=== PATIENT | female | born 1960 | race Caucasian/White ===

== ENCOUNTER 2019-06-12 21:48 | Emergency (ER) | payer OTHER, SELFPAY ==
--- OUTSIDE RECORDS SUMMARY | 2019-06-12 21:51 | XMS REPORT ---
:1960 [facility] Address [address] [place] [address] [place] [id number] Care Team Providers Name Role Phone YUAN RIVERA Unavailable Unavailable Problems This patient has no known problems. Allergies, Adverse Reactions, Alerts This patient has no known allergies or adverse reactions. Medications This patient has no known medications. Results Test Description Test Time Test Comments Text Results Atomic Results Result Comments MR, MRI BREAST, WITHOUT 2018-08-05 10:30:00 #[id number] - MR, MRI BREAST, WITHOUTBREAST MRI OF BOTH BREASTS : 08/04/2018 MRI images were obtained with a dedicated breast coil. Multiplanar and multisequence MR images of the breasts are obtained before and after intravenous 17cc Multihance. Post contrast dynamic images are acquired, with subtraction images obtained.The images were analyzed using Telematik software. There is mild to moderate background enhancement in both breasts. The breast fibroglandular tissues are heterogenously dense.Scattered benign cysts are seen in both breasts.There is no suspicious mass or suspicious contrast enhancement in either breast. IMPRESSION: BENIGN Benign breast MRI. Kyle Byrne M.D. pth/:08/05/2018 10:30:33 Normal Exam MRI BI-RADS: 2 Benign [id number] -CREATININE 2018-08-04 08:58:00 Test Item Value Reference Range Comments POC-CREATININE (BENELY) (test 1.0 mg/dL 0.6-1.3 TESTED AT [facility] 6720 [id number]) [facility] [address] POC-EGFR (BENELY) (test [id number]=[id number]) 57 mL/min/1.73M2 MM, U/S, BREAST, [id number] 15:30:00Diagnostic workup per radiologist?- >Yes Reason for Exam:->Z15.01, Z15.09, N64.59MRN#: [id number] - MM , U/S, BREAST, BILATERALULTRASOUND OF BOTH BREASTS: 07/27/2018Comparison is made to exams dated: 10/25/2012 ultrasound and 07/27/2018 mammogram - [facility]. Technique: Bilateral whole breast color flow and real-time ultrasound including evaluation of all four quadrants and the retroareolar regions of both breasts and bilateral axilla was performed. There is no suspicious cystic or solid sonographic finding. Scattered benign cysts are present bilaterally. IMPRESSION: BENIGN There is no sonographic evidence of malignancy. A 1 year screening mammogram is recommended. Moody Arenas M.D. mc/:07/27/2018 15:30:43 Normal Exam Ultrasound BI-RADS: 2 Benign [id number] MM, DIGITAL MAMMO, DIAGNOSTIC, WITH JOI, BILATERAL INCLUDING [id number] 15:29:00Diagnostic workup per radiologist?->Yes Reason for Exam:->N64.59, Z15.01, Z15.09MRN#: [id number]# [id number] - MM, DIGITAL MAMMO, DIAGNOSTIC, WITH JOI, BILATERAL INCLUDING CADBILATERALDIGITAL DIAGNOSTIC MAMMOGRAM 3D/2D WITH CAD: 07/27/2018Comparison is made to exams dated: 01/23/2017 mammogram, 01/20/2012 ultrasound, and 01/20/2012 mammogram - [facility]. The tissue of both breasts is heterogeneously dense. This may lower the sensitivity of mammography. Tomosynthesis 3D imaging of the breast was also performed. Current study was also evaluated with a Computer Aided Detection (CAD) system. No significant masses, calcifications, or other findings are seen in either breast. IMPRESSION: NEGATIVEThere is no abnormality seen in the left breast to correspond with the area of clinical concern, however, ultrasound is recommended. Ultrasoundevaluation was performed immediately after this mammogram, but is reported separately. Please see that report for further details. There is no mammographic evidence of malignancy. Moody Arenas M.D. mc/:07/27/2018 15:29:39 Ladies' Locker Room Attendant: Faiza BHARDWAJ(James)(Marvin), [facility] Mammogram BI-RADS: 1 Negative
--- NOTE | 2019-06-12 23:24 | ER ---
Nurse's Notes [facility] Name: Yane Sharpe Age: 59 yrs Sex: Female : 1960 Arrival Date: 06/12/2019 Time: 21:51 Bed 5 Private MD: Diagnosis: Asymptomatic Hypertension Presentation: 06/12 21:53 Presenting complaint: Patient states: YESTERDAY MY PRESSURE IS AT 190s (SYSTOLIC) AND I rv FEEL PRESSURE ON MY HEAD. I HAD AN EPISODE OF RIGHT LEG WEAKNESS AND I COULD NOT SAY THE WORDS. TODAY MY PRESSURE IS STILL HIGH. Transition of care: patient was not received from another setting of care. Onset of symptoms was June 11, 2019 at 15:00. Risk Assessment: Do you want to hurt yourself or someone else? Patient reports no desire to harm self or others. Initial Sepsis Screen: Does the patient meet any 2 criteria? No. Patient's initial sepsis screen is negative. Does the patient have a suspected source of infection? No. Patient's initial sepsis screen is negative. Care prior to arrival: None. 21:53 Method Of Arrival: Ambulatory 21:53 Acuity: DENIZ 3 rv Triage Assessment: 22:03 General: Appears in no apparent distress. comfortable, Behavior is calm, cooperative. rv Pain: Complains of pain in NECK. Neuro: Level of Consciousness is awake, alert, obeys commands, Oriented to person, place, time, situation. Respiratory: Airway is patent. Derm: Skin is intact. Historical: - Allergies: 22:02 Codeine; rv 22:02 Demerol; rv - PMHx: 22:02 Hypertension; High Cholesterol; rv - PSHx: 22:02 Hysterectomy; KIDNEY SX; CYSTOSCOPY; COLONOSCOPY; rv - Immunization history:: Adult Immunizations. - Social history:: Smoking status: Patient/guardian denies using tobacco. - Ebola Screening: : No symptoms or risks identified at this time. Screenin:25 Abuse screen: Denies threats or abuse. Denies injuries from another. Nutritional ao screening: No deficits noted. Tuberculosis screening: No symptoms or risk factors identified. Fall Risk None identified. Assessment: 22:30 General: Appears in no apparent distress. comfortable, Behavior is calm, cooperative, rv appropriate for age. Pain: Denies pain. Neuro: Level of Consciousness is awake, alert, obeys commands, Oriented to person, place, time, situation, Appropriate for age Moves all extremities. Full function Facial symmetry appears normal. Cardiovascular: Reports None. Respiratory: Airway is patent Respiratory effort is even, unlabored, Respiratory pattern is regular, symmetrical. GI: Abdomen is non-distended. : No signs and/or symptoms were reported regarding the genitourinary system. EENT: No signs and/or symptoms were reported regarding the EENT system. Derm: No signs and/or symptoms reported regarding the dermatologic system. Musculoskeletal: No signs and/or symptoms reported regarding the musculoskeletal system. 22:55 Reassessment: Pt was medical screening by Dr Otto. rv 23:01 Reassessment: Patient and/or family updated on plan of care and expected duration. Pain ea level reassessed. Patient is alert, oriented x 3, equal unlabored respirations, skin warm/dry/pink. Pt medically screened. Pt left ED ambulatory tolerating well. Vital Signs: 22:00 BP 189 / 102; Pulse 79; Resp 18; Pulse Ox 98% ; Weight 80.74 kg (R); Height 5 ft. 6 in. rv (167.64 cm); 22:02 Temp 98.1(O); rv 22:09 BP 173 / 85; Pulse 74; Resp 16; Pulse Ox 99% on R/A; mt 23:03 BP 149 / 82; Pulse 74; Resp 16; Pulse Ox 99% on R/A; rv 22:00 Body Mass Index 28.73 (80.74 kg, 167.64 cm) rv ED Course: 21:51 Patient arrived in ED. ag3 21:54 Kevan Otto MD is Attending Physician. ps1 21:57 Ramiro Chinchilla, JAY JAY is Primary Nurse. ao 22:00 Triage completed. rv 22:03 Arm band placed on Patient placed in the treatment room, on a stretcher, on pulse rv oximetry, Patient notified of wait time. 22:25 Patient has correct armband on for positive identification. Pulse ox on. NIBP on. ao 23:02 No provider procedures requiring assistance completed. Patient did not have IV access rv during this emergency room visit. Administered Medications: No medications were administered Outcome: 23:02 Medical screen evaluation completed per provider. rv 23:02 Condition: stable 23:02 Discharge instructions given to door closer mechanic, Instructed on discharge instructions. 23:23 Discharge ordered by . ps1 23:28 Patient left the ED. ao Signatures: Ramiro Chinchilla, RN RN Jovana Villalobos mt, Elena RN RN Kevan Tomlinson MD MD ps1 Glenn Mena RN RN Roxanne Lawrence3 Corrections: (The following items were deleted from the chart) 23:02 23:01 Reassessment: Patient and/or family updated on plan of care and expected ea duration. Pain level reassessed. Patient is alert, oriented x 3, equal unlabored respirations, skin warm/dry/pink. Pt medically screened ea
--- NOTE | 2019-06-12 23:24 | EDPHYS ---
Physician Documentation [facility] Name: Yane Sharpe Age: 59 yrs Sex: Female : 1960 Arrival Date: 06/12/2019 Time: 21:51 Bed 5 Private MD: ED Physician Kevan Otto HPI: 06/12 22:51 This 59 yrs old Female presents to ER via Ambulatory with complaints of High ps1 Blood Pressure. 22:51 Patient presented with known history of HTN. On Losartan 20mg bid. States that her BP ps1 has been elevated for last couple of days. No symptoms on presentation. Pt of Dr. Saleh and Chris. Chris eval no cardiac history. Delfino managing HTN medications. . Historical: - Allergies: 22:02 Codeine; rv 22:02 Demerol; rv - PMHx: 22:02 Hypertension; High Cholesterol; rv - PSHx: 22:02 Hysterectomy; KIDNEY SX; CYSTOSCOPY; COLONOSCOPY; rv - Immunization history:: Adult Immunizations. - Social history:: Smoking status: Patient/guardian denies using tobacco. - Ebola Screening: : No symptoms or risks identified at this time. ROS: 22:51 Constitutional: Negative for fever, chills, and weight loss, Cardiovascular: Negative ps1 for chest pain, palpitations, and edema, Respiratory: Negative for shortness of breath, cough, wheezing, and pleuritic chest pain, Abdomen/GI: Negative for abdominal pain, nausea, vomiting, diarrhea, and constipation, Neuro: Negative for headache, weakness, numbness, tingling, and seizure. Exam: 22:51 Constitutional: This is a well developed, well nourished patient who is awake, alert, ps1 and in no acute distress. Head/Face: Normocephalic, atraumatic. Eyes: Pupils equal round and reactive to light, extra-ocular motions intact. Lids and lashes normal. Conjunctiva and sclera are non-icteric and not injected. Cardiovascular: Regular rate and rhythm. No gallops, murmurs, or rubs. Normal PMI, no JVD. No pulse deficits. Respiratory: Lungs have equal breath sounds bilaterally, clear to auscultation and percussion. No rales, rhonchi or wheezes noted. No increased work of breathing, no retractions or nasal flaring. Abdomen/GI: Soft, non-tender, with normal bowel sounds. No distension or tympany. No guarding or rebound. No evidence of tenderness throughout. Skin: Warm, dry with normal turgor. Normal color with no rashes, no lesions, and no evidence of cellulitis. Neuro: Awake and alert, GCS 15, oriented to person, place, time, and situation. Cranial nerves II-XII grossly intact. Sensory grossly intact. Vital Signs: 22:00 BP 189 / 102; Pulse 79; Resp 18; Pulse Ox 98% ; Weight 80.74 kg (R); Height 5 ft. 6 in. rv (167.64 cm); 22:02 Temp 98.1(O); rv 22:09 BP 173 / 85; Pulse 74; Resp 16; Pulse Ox 99% on R/A; mt 23:03 BP 149 / 82; Pulse 74; Resp 16; Pulse Ox 99% on R/A; rv 22:00 Body Mass Index 28.73 (80.74 kg, 167.64 cm) rv MDM: 22:50 Patient medically screened. ps1 22:51 Data reviewed: vital signs, nurses notes. ps1 Administered Medications: No medications were administered Disposition: 22:51 Asymptomatic hypertension. ps1 Disposition: 06/12/19 23:23 Discharged to Home. Impression: Asymptomatic Hypertension. - Condition is Stable. - Discharge Instructions: Hypertension. - Medication Reconciliation Form, Thank You Letter, Antibiotic Education, Prescription Opioid Use form. - Follow up: Private Physician; When: As needed; Reason: Recheck today's complaints, Continuance of care, Re-evaluation by your physician. Follow up: Emergency Department; When: As needed; Reason: Trouble breathing, Worsening of condition. - Problem is chronic. - Symptoms have improved. Signatures: Ramiro Chinchilla RN RN ao Kevan Otto MD MD ps1 Glenn Mena RN RN rv Corrections: (The following items were deleted from the chart) 23:28 23:23 06/12/2019 23:23 Discharged to Home. Impression: Asymptomatic Hypertension. ao Condition is Stable. Forms are Medication Reconciliation Form, Thank You Letter, Antibiotic Education, Prescription Opioid Use. Follow up: Private Physician; When: As needed; Reason: Recheck today's complaints, Continuance of care, Re-evaluation by your physician. Follow up: Emergency Department; When: As needed; Reason: Trouble breathing, Worsening of condition. Problem is chronic. Symptoms have improved. ps1
[2019-06-12 23:44] VITALS: TEMP 98.1
[2019-06-12 23:45] VITALS: O2SAT 99
[2019-06-12 23:46] VITALS: BP 149/82
== END 2019-06-12 23:28 | disposition home or self-care (01) ==
LOC: ER 21:48
DX: I10 Essential (primary) hypertension (principal); Z88.5 Allergy status to narcotic agent
CPT/HCPCS: 99283

== ENCOUNTER 2023-04-28 12:14 | Emergency (ER) | payer SELFPAY ==
--- OUTSIDE RECORDS SUMMARY | 2023-04-28 12:17 | XMS REPORT | Continuity of Care Document ---
:1960 Author Organization [facility] t Address [address] [place] [address] [address] [place] [address] Care Team Providers Name Role Phone Huang Saleh Primary Care Physician Unavailable Ricki Allen MD Attending Clinician [phone] Therapy, Clc Covid Infusion Attending Clinician Unavailable Neno Anne MD Attending Clinician NENO ANNE Attending Clinician Unavailable Doctor Unassigned, [place] Attending Clinician Unavailable Vero Caba RN Attending Clinician Unavailable YUAN RIVERA Attending Clinician Unavailable Stephanie Sharpe Attending Clinician Payers Payer Name Policy Type Policy Number Effective Date Expiration Date S ource Problems Condition Condition Condition Status Onset Resolution Last Treating Co mments Source Name Details Category Date Date Treatment Clinician Date BRCA2 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 -18 st positive positive 00:00: Hospit a 00 l LYMPEDEMA LYMPEDEMA Diagnosis Active 2017-01-09 Memoria Active 12-18 09:00:00 l 12/18/2016 00:00: Sukhjinder SMYTH [address] No known No known Disease Unive rs active active ity of problems problems [facility] Allergies, Adverse Reactions, Alerts Allergy Allergy Status Severity Reaction(s) Onset Inactive Treating Comm ents Source Name Type Date Date Clinician Emre Posada Active [address] [facility] 2[facility] adverse [facility]: tions Medical reaction 00 Center s Meperidi Propensi Active Other (See [address] [facility] ty to Comments) 2-13 [facility] adverse 00:00: Medical reaction 00 Center s Codeine Propensi Active Methodi ty to 1-28 st adverse 00:00: Hospita reaction 00 l s to drug Codeine Propensi Active Extra Univers ty to pyramidal 2-24 ity of adverse effects 00:00: [place] reaction 00 Medical s Branch Meperidi Propensi Active Extra 0 Univer s ne Hcl ty to pyramidal 2-24 ity of adverse effects 00:00: [place] reaction 00 Medical s Branch CODEINE DRUG Active EP Effects 0 Unive rs INGREDI 2-24 ity of 00:00: [place] 00 Medical Branch MEPERIDI DRUG Active EP Effects Univ ers NE HCL INGREDI 2-24 ity of 00:00: [place] 00 Medical Branch Codeine Drug Active Unknown - 2010-06 Hallucina Uni vers Allergy See comments 0-25 tionsSeve ity of 00:00: re [place] 00 senecaicina Medical tions Branch Meperidi Drug Active Hallucinatio 2010-06 hallucina Univers ne Allergy ns 0-25 tionshall ity of 00:00: icination [place] 00 s Medical Branch CODEINE DRUG Active High EP Effects 2010-06 Unive rs INGREDI 0-25 ity of 00:00: [place] 00 Medical Branch MEPERIDI DRUG Active High Unknown-Cmnt 2010-06 Un nedra NE INGREDI 0-25 ity of 00:00: [place] 00 Medical Branch Family History Family Member Diagnosis Comments Start Date Stop Date Source Natural brother Leukemia [facility] Natural father Bladder Cancer [facility] Natural mother Colon cancer [facility] Natural sister BRCA 1/[address] [facility] Social History Social Habit Start Date Stop Date Quantity Comments Source Sexual orientation Method ist [facility] History of Social 2022-09-14 2022-09-[address] function 00:00:00 00:00:00 Hospital Alcohol intake 2018-10-16 2018-10-16 Current University of 00:00:00 00:00:00 non-drinker of [facility] alcohol Branch (finding) Tobacco use and 2018-07-19 2018-07-19 Smokeless [facility] exposure 00:00:00 00:00:00 tobacco non-user Hospital Sex Assigned At [birth year] ROGER Alvarado 00:00:00 00:00:00 [facility] Center Smoking Status Start Date Stop Date Source Never smoked tobacco [facility] Medications Ordered Filled Start Stop Current Ordering Indication Dosage Frequency Signature Comments Components Source Medication Medication Date Date Medication? Clinician (SIG) Name Name losartan 2022- No losartan Meth burak (COZAAR) 25 3-29 03-[address] MG tablet 00:27: 00:00 tablet Hospi ta 36 :00 l dorzolamide Yes INSTILL 1 M ethodi (TRUSOPT) 2 3-[address] % 00:00: EACH EYE Hospita ophthalmic 00 TWICE l solution DAILY DIRECTED amLODIPine Yes 2.5mg QD Take 1 Meth burak (NORVASC) 2-[address] 2.5 mg 00:00: (2.5 mg Hospita tablet 00 total) by l mouth daily. olmesartan Yes 40mg QD Take 1 Metho di (BENICAR) 1-19 tablet (40 st 40 MG 00:00: mg total) Hospita tablet 00 by mouth l daily. casirivimab 2020- No [id number] 1200mg 1,200 mg, [facility] -imdevimab 02-26 IV ity of 1200 mg in 19:15: 18:00 Infusion, [place] 60 mL NS 00 :00 ONCE, Medical MINI-BAG Administer Branc h over 20 Minutes, Tu02/26/21 at 1415, For 1 dose
Ad beaver trapper as an IV infusion via pump or gravity through an intravenou s line containing a sterile, in-line or add-on 0.2-micron polyethers ulfone (PES) filter. Stable 36 hours refrigerat ed; 4 hours at room temperatur e.
losartan Yes losartan Metho di (COZAAR) 25 7-[address] MG tablet 13:25: tablet Hospit a 46 l LOSARTAN-HY Yes Take by Uni vers DROCHLOROTH 4-27 mouth. ity of IAZIDE ORAL 22:38: [address] losartan 25 Yes losartan Un nedra mg tablet 4-27 25 mg ity of 22:38: tablet [address] LOSARTAN-HY Yes Take by Uni vers DROCHLOROTH 4-27 mouth. ity of IAZIDE ORAL 22:38: [address] losartan 25 Yes losartan Un nedra mg tablet 4-27 25 mg ity of 22:38: tablet [address] LOSARTAN-HY Yes Take by Uni vers DROCHLOROTH 4-27 mouth. ity of IAZIDE ORAL 22:38: [address] losartan 25 Yes losartan Un nedra mg tablet 4-27 25 mg ity of 22:38: tablet [address] LOSARTAN-HY Yes Take by Uni vers DROCHLOROTH 4-27 mouth. ity of IAZIDE ORAL 22:38: [address] losartan 25 Yes losartan Un nedra mg tablet 4-27 25 mg ity of 22:38: tablet [address] LOSARTAN-HY Yes Take by Uni vers DROCHLOROTH 4-27 mouth. ity of IAZIDE ORAL 17:38: [address] losartan 25 Yes losartan Un nedra mg tablet 4-27 25 mg ity of 17:38: tablet [address] LOSARTAN-HY Yes Take by Uni vers DROCHLOROTH 4-27 mouth. ity of IAZIDE ORAL 17:38: [address] losartan 25 Yes losartan Un nedra mg tablet 4-27 25 mg ity of 17:38: tablet [address] azithromyci Yes [id number] 250mg Take 1 Univers n 250 mg 2-25 tablet by ity of tablet 00:00: mouth SEE-INSTRU Medical CTIONS. Branch Take 500 mg day 1, then 250 mg days 2 to 5. benzonatate Yes [id number] 100mg Take 1 Univers 100 mg 2-25 capsule by ity of capsule 00:00: mouth 3 [place] (three) Medical times Branch daily as needed for Cough. azithromyci Yes [id number] 250mg Take 1 Univers n 250 mg 2-25 tablet by ity of tablet 00:00: mouth [facility] CTIONS. Branch Take 500 mg day 1, then 250 mg days 2 to 5. benzonatate 2019-0 Yes [id number] 100mg Take 1 Univers 100 mg 2-25 capsule by ity of capsule 00:00: mouth (three) Medical times [place] daily as needed for Cough. azithromyci 2019-0 Yes [id number] 250mg Take 1 Univers n 250 mg 2-25 tablet by ity of tablet 00:00: mouth [facility] CTIONS. Branch Take 500 mg day 1, then 250 mg days 2 to 5. benzonatate 2019-0 Yes [id number] 100mg Take 1 Univers 100 mg 2-25 capsule by ity of capsule 00:00: mouth ([facility]) Medical times [place] daily as needed for Cough. azithromyci 2019-0 Yes [id number] 250mg Take 1 Univers n 250 mg 2-25 tablet by ity of tablet 00:00: mouth [facility] CTIONS. Branch Take 500 mg day 1, then 250 mg days 2 to 5. benzonatate 2019-0 Yes [id number] 100mg Take 1 Univers 100 mg 2-25 capsule by ity of capsule 00:00: mouth ([facility]) Medical times [place] daily as needed for Cough. azithromyci 2019-0 Yes [id number] 250mg Take 1 Univers n 250 mg 2-25 tablet by ity of tablet 00:00: mouth [facility] CTIONS. Branch Take 500 mg day 1, then 250 mg days 2 to 5. benzonatate 2019-0 Yes [id number] 100mg Take 1 Univers 100 mg 2-25 capsule by ity of capsule 00:00: mouth (three) Medical times [place] daily as needed for Cough. azithromyci 2019-0 Yes [id number] 250mg Take 1 Univers n 250 mg 2-25 tablet by ity of tablet 00:00: mouth [facility] CTIONS. Branch Take 500 mg day 1, then 250 mg days 2 to 5. benzonatate 2019-0 Yes [id number] 100mg Take 1 Univers 100 mg 2-25 capsule by ity of capsule 00:00: mouth (three) Medical times Branch daily as needed for Cough. hydroCHLORO Yes Univer s thiazide 2-20 ity of 12.5 mg 00:00: [place] capsule 00 Medical Branch hydroCHLORO 0 Yes Univer s thiazide 2-20 ity of 12.5 mg 00:00: [place] capsule Medical Branch hydroCHLORO 0 Yes Univer s thiazide 2-20 ity of 12.5 mg 00:00: [place] capsule Medical Branch hydroCHLORO 2018-0 Yes Univer s thiazide 2-20 ity of 12.5 mg 00:00: [place] capsule Medical Branch hydroCHLORO Yes Univer s thiazide 2-20 ity of 12.5 mg 00:00: [place] capsule Medical Branch hydroCHLORO Yes Univer s thiazide 2-20 ity of 12.5 mg 00:00: [place] capsule Medical Branch Vital Signs Vital Name Observation Time Observation Value Comments Source Systolic blood 2021-02-26 18:59:00 135 mm[Hg] Univer sity of pressure [facility] Diastolic blood 2021-02-26 18:59:00 86 mm[Hg] Unive rsity of [facility] Heart rate 2021-02-26 18:59:00 82 /min [facility] Body temperature 2021-02-26 18:59:00 37.39 [facility] Res[facility] rate 2021-02-26 18:59:00 16 /min [facility] Oxygen saturation in 2021-02-26 18:59:00 96 /min [facility] Arterial blood by [facility] Pulse oximetry [place] Body height 2021-02-26 17:27:00 167.6 cm [facility] Body weight 2021-02-26 17:27:00 79.379 kg [facility] BMI 2021-02-26 17:27:00 28.25 kg/m2 [facility] Procedures Procedure Date / Time Performed Performing Clinician Sourc e AUTOMATED VISUAL 2022-09-15 13:53:[address] [facility] FIELD, EXTENDED - OU Srinath - BOTH EYES OCT, OPTIC NERVE - OU 2022-09-15 13:43:24 Ricki Allen [facility] - BOTH EYES [facility] CONSENT/REFUSAL FOR 2021-02-26 05:01:00 Doctor [facility]igned, [facility] AND Name Medical Branch TREATMENT Plan of Care Planned Activity Planned Date Details Comments Source Future Scheduled 2023-04-24 [facility] Test 21:54:43 malignant neoplasm of colon (procedure) [code = 301379337] Future Scheduled 2023-04-24 [facility] Test 21:54:43 malignant neoplasm of colon (procedure) [code = 393887603] Future Scheduled 2023-04-24 COVID-19 VACCINE (#1) [facility] Test 21:54:43 [code = COVID-19 VACCINE (#1)] Future Scheduled 2023-04-24 Hepatitis C screening [facility] Test 21:54:43 (procedure) [code = 800847684] Future Scheduled 2023-04-24 [facility] Test 21:54:43 malignant neoplasm of cervix (procedure) [code = 278465633] Future Scheduled 2023-04-24 [facility] Test 21:54:43 malignant neoplasm of colon (procedure) [code = 195342893] Future Scheduled 2023-04-24 SHINGLES VACCINES (1 [facility] Test 21:54:43 of 2) [code = SHINGLES VACCINES (1 of 2)] Future Scheduled 2023-04-[address] [facility] Test 21:54:43 SCREENING [code = BREAST CANCER SCREENING] Future Scheduled 2023-04-[address] [facility] Test 21:54:43 malignant neoplasm of colon (procedure) [code = 036489203] Future Scheduled 2023-04-[address] [facility] Test 21:54:43 malignant neoplasm of colon (procedure) [code = 602626857] Future Scheduled 2023-04-24 INFLUENZA VACCINE Method t Hospital Test 21:54:43 (#1) [code = INFLUENZA VACCINE (#1)] Future Scheduled 2021-05-01 COVID-19 VACCINE (1) [facility] Test 15:04:38 [code = COVID-19 VACCINE (1)] Future Scheduled 2021-05-01 Hepatitis C screening [facility] Test 15:04:38 (procedure) [code = 015950883] Future Scheduled 2021-05-01 [facility] Test 15:04:38 malignant neoplasm of cervix (procedure) [code = 256792591] Future Scheduled 2021-05-01 COLONOSCOPY SCREENING [facility] Test 15:04:38 [code = COLONOSCOPY SCREENING] Future Scheduled 2021-05-01 SHINGLES VACCINES Method [facility] Hospital Test 15:04:38 (#1) [code = SHINGLES VACCINES (#1)] Future Scheduled 2021-05-01 BREAST CANCER [facility] Test 15:04:38 SCREENING [code = BREAST CANCER SCREENING] Future Scheduled 2021-05-01 INFLUENZA VACCINE Method [facility] Hospital Test 15:04:38 [code = INFLUENZA VACCINE] Future Scheduled 2021-02-[address] [facility] Test 00:00:00 (#1) [code = Medical Center INFLUENZA VACCINE (#1)] Future Scheduled 2020-06-[address] [facility] Test 00:00:00 (12+) [code = Medical Center DEPRESSION SCREENING (12+)] Future Scheduled 2019-07-[address] [facility] 00:00:00 [facility] breast (procedure) [code = 108843065] Future Scheduled 2009 SHINGLES VACCINES ([address] [facility] Test 00:00:00 of 2) [code = Medical Center SHINGLES VACCINES (1 of 2)] Future Scheduled 2004-01-[address] [facility] Test 00:00:00 (procedure) [code = Medical Center 22866177] Future Scheduled 1980-01-[address] [facility] Test 00:00:00 [facility] cervix (procedure) [code = 826509845] Future Scheduled 1978 DTAP/TDAP/TD VACCINES [facility] Test 00:00:00 (1 - Tdap) [code = Medical C enter DTAP/TDAP/TD VACCINES (1 - Tdap)] Future Scheduled 1977 HEPATITIS C SCREENING [facility] Test 00:00:00 [code = HEPATITIS C Medical Center SCREENING] Future Scheduled 1971 COVID-19 VACCINE (1) [facility] Test 00:00:00 [code = COVID-[address] VACCINE (1)] Future Scheduled [address] [facility] Test 00:00:00 malignant neoplasm of Medica l Center colon (procedure) [code = 792154780] Encounters Start End Encounter Admission Attending Care Care Encounter Source Date/Time Date/Time Type Type Clinicians Facility Department ID 2023-04-01 2023-04-01 Telephone Lisa, 1.2.840.1 [id number] Methodi 00:00:00 00:00:[address] Srinath 3.430.2.7 Hospit a .3.179866 l .8 2022-11-21 2022-11-21 Telephone Lisa, 1.2.840.1 [id number] Methodi 00:00:00 00:00:[address] Srinath 3.430.2.7 Hospit a .3.343621 l .8 2022-09-29 2022-09-29 Travel 1.2.840.1 1.2.905.888 [id number] Methodi 00:00:00 00:00:[address] 3.430.2.7 0.2.7.3.698 Ho spita .3.352033 084.8 l .8 2022-09-25 2022-09-25 Travel 1.2.840.1 1.2.111.269 [id number] Methodi 00:00:00 00:00:[address] 3.430.2.7 0.2.7.3.698 Ho spita .3.093230 084.8 l .8 2022-09-22 2022-09-22 Telephone Lisa, 1.2.840.1 [id number] Methodi 00:00:00 00:00:[address] Srinath 3.430.2.7 Hospit a .3.740245 l .8 2022-09-15 2022-09-15 Office Lisa, 1.2.840.1 [id number] Methodi 08:00:00 09:47:51 Visit Peter 40961.1.[address] Srinath 3.430.2.7 Hospit a .3.156352 l .8 2022-09-15 2022-09-15 Travel 1.2.840.1 1.2.820.085 [id number] Methodi 00:00:00 00:00:[address] 3.430.2.7 0.2.7.3.698 Ho spita .3.436384 084.8 l .8 2022-09-15 2022-09-15 Outpatient LISA, [facility] [id number] [place] 00:00:00 00:00:00 [address] [facility] i st 2021-02-26 2021-02-26 Nurse Therapy, Clc Covid Infusion [facility] 1.2.840.114 [id number] Univers 11:58:30 12:58:30 Visit Neno Anne [facility] 350.1.13.10 ity [facility] 4.2.7.2.686 [facility] [phone] [place] [id number] Branch Office Building 2021-02-26 2021-02-26 Outpatient James [facility] [id number] Univers 12:30:00 12:30:00 NENO casanova [facility] [place] 2021-02-26 2021-02-26 Orders Doctor MCNAMARA 1.2.840.114 [id number] Univers 00:00:00 00:00:00 Only Unassigned, CAMILO 350.1.13.[address] [place] [facility] 4.2.7.2.686 Eduardo as [phone] [facility] 009 Branch 2021-02-25 2021-02-25 Outpatient James ANNE [facility] [id number] Univers 10:30:00 10:30:00 NENO casanova [facility] [place] 2021-02-25 2021-02-25 Nurse Vero Caba 1.2.840.114 [id number] Univers 00:00:00 00:00:00 Triage CAMILO 350.1.13.10 it y of HOSPITAL 4.2.7.2.686 Eduardo as [id number] [facility] 019 Branch 2017-01-09 2017-02-08 Wound Care [facility] [id number] Memoria 13:50:00 04:59:00 r Herrera 00 l [facility] 2017-01-09 2017-02-08 Wound Care [facility] [id number] Memoria 13:50:00 04:59:00 r Herrera 00 l [facility] 2017-01-09 2017-02-07 Outpatient Dell [facility] [id number] 08:50:00 23:59:00 Stephanie Jones 00 Results Test Description Test Time Test Comments [facility], MRI BREAST, 2018-08-05 MRN#: WITHOUT 10:30:00 [id number] - MR, MRI BREAST, WITHOUTBREAST MRI OF BOTH BREASTS : 08/04/2018 MRI images were obtained with a dedicated breast coil. Multiplanar and multisequence MR images of the breasts are obtained before and after intravenous 17cc Multihance. Post contrast dynamic images are acquired, with subtraction images obtained.The images were analyzed using Jukedeck software. There is mild to moderate background enhancement in both breasts. The breast fibroglandular tissues are heterogenously dense.Scattered benign cysts are seen in both breasts.There is no suspicious mass or suspicious contrast enhancement in either breast. IMPRESSION: BENIGN Benign breast MRI. Kyle Ace M.D. pth/:08/05/2018 10:30:33 Normal Exam MRI BI-RADS: 2 Benign C8909 -CREATININE 2018-08-04 08:58:00 Test Item Value Reference Range Interpretation Comme [facility] POC-CREATININE (BEAKER) (test 1.0 mg/dL 0.6-1.[address] [facility] 6720 code = 1859) [facility] [address] POC-EGFR (BEAKER) (test code = 57 mL/min/1.73M2 1860) MM, U/S, BREAST, [id number] 15:30:00Diagnostic workup per radiologist?- >Yes Reason for Exam:->Z15.01, Z15.09, N64.59MRN#: [id number] - MM, U/S, BREAST, BILATERALULTRASOUND OF BOTH BREASTS: 07/27/2018Comparison is made to exams dated: 10/25/2012 ultrasound and 07/27/2018 mammogram - [facility]. Technique: Bilateral whole breast color flow and real-time ultrasound including evaluation of all four quadrants and the retroareolar regions of both breasts and bilateral axilla was performed. There is no suspicious cystic or solid sonographic finding. Scattered benign cysts are present bilaterally. IMPRESSION: BENIGN There is no sonographic evidence of malignancy. A 1 year screening mammogram is recommended. Moody Arenas M.D., mc/:07/27/2018 15:30:43 Normal Exam Ultrasound BI-RADS: 2 Benign 57605 MM, DIGITAL MAMMO, DIAGNOSTIC, WITH JOI, BILATERAL INCLUDING [id number] 15:29:00 Diagnostic workup per radiologist?->Yes Reason for Exam:->N64.59, Z15.01, Z15.09MRN#: [id number] - MM, DIGITAL MAMMO, DIAGNOSTIC, WITH JOI, BILATERAL INCLUDING CADBILATERALDIGITAL DIAGNOSTIC MAMMOGRAM 3D/2D WITH CAD: 07/27/2018Comparison is made to exams dated: 01/23/2017 mammogram, 01/20/2012 ultrasound, and [facility] The tissue of both breasts is heterogeneously dense. This may lower the sensitivity of mammography. Tomosynthesis 3D imaging of the breast was also performed. Current study was also evaluatedwith a Computer Aided Detection (CAD) system. No significant masses, calcifications, or other findings are seen in either breast. IMPRESSION: NEGATIVEThere is no abnormality seen in the left breast to correspond with the area of clinical concern, however, ultrasound is recommended. Ultrasound evaluation was performed immediately after this mammogram, but is reported separately. Please see that reportfor further details. There is no mammographic evidence of malignancy. Moody Arenas M.D. mc/:07/27/2018 15:29:39 Juice Tester: Faiza PELAYO)(Marvin), [facility] Mammogram BI-RADS: 1 Negative
[2023-04-28 12:38] LABS: Absolute Lymphocytes (CBC) 1.6 K/uL (0.7-4.9); Hematocrit 39.5 % (36.0-45.0); Lymphocytes % 31.2 % (15.3-44.8); MCV 87.3 fL (80-100); MPV 8.1 fL (7.6-11.3); Platelets 174 thou/uL (152-406); RBC Red Blood Cell Count 4.52 M/uL (3.86-4.86)
--- NOTE | 2023-04-28 12:41 | RAD REPORT ---
EXAM DESCRIPTION: CT - Ct Stroke Brain Wo Cont - 04/28/2023 12:30 pm CLINICAL HISTORY: STROKE ALERT Headache, drowsiness, CVA symptomology COMPARISON: No comparisons TECHNIQUE: All CT scans are performed using dose optimization technique as appropriate and may inclu de automated exposure control or mA/KV adjustment according to patient size. FINDINGS: No intracranial hemorrhage, hydrocephalus or extra-axial fluid collection.No areas of brai n edema or evidence of midline shift. The paranasal sinuses and mastoids are clear. The calvarium is intact. IMPRESSION: No acute intracranial abnormality. The findings were discussed with Dr. Luciano in the ER On 04/28/2023 at 12:36 p.m. by telephone.
[2023-04-28 12:44] LABS: Protime INR 0.96
--- NOTE | 2023-04-28 12:50 | RAD REPORT ---
EXAM DESCRIPTION: CT - Head angio - 04/28/2023 12:34 pm CLINICAL HISTORY: STROKE ALERT Headache, drowsiness, CVA COMPARISON: Ct Stroke Brain Wo Cont dated 04/28/2023 TECHNIQUE: CT angiography of the head was performed with MIPs. All CT scans are performed using dose optimization technique as appropriate and may include automated exposure control or mA/KV adjustment according to patient size. FINDINGS: No evidence of large vessel occlusion. Mild atheromatous narrowing seen bilateral M1 segme nts. No evidence of aneurysm is detected. No flow-limiting stenosis or vascular malformation identifi ed. Antegrade flow is seen in the vertebral arteries. Mild left-sided dominant vertebral artery. The visualized dural venous sinuses are patent. IMPRESSION: No significant flow abnormality is detected.
--- NOTE | 2023-04-28 12:55 | RAD REPORT ---
EXAM DESCRIPTION: CT - Neck Angio - 04/28/2023 12:34 pm CLINICAL HISTORY: NUMBNESS Headache, drowsiness, CVA symptomology COMPARISON: No comparisons TECHNIQUE: CT angiography of the neck vessels was performed with MIPs. All CT scans are performed using dose optimization technique as appropriate and may include automated exposure control or mA/KV adjustment according to patient size. FINDINGS: A left aortic arch is identified with normal three vessel configuration of the great vesse ls. No significant flow abnormality is seen of the common carotid bilaterally. Focal soft plaque is present left carotid bulb measuring approximately 5 mm in thickness. This result s in moderate stenosis estimated at 50-70% based on NASCET criteria. Mild hard plaque is present invo lving the proximal left internal carotid artery resulting in stenosis study is mild, left and 50% bas ed on NASCET criteria. Normal flow is seen within both vertebral arteries. IMPRESSION: Soft plaque is noted in the region of the left carotid bulb resulting in a moderate grad e stenosis based on NASCET criteria. NASCET criteria used. Mild 0-49% stenosis Moderate 50-69% stenosis Severe 70-99% stenosis
[2023-04-28 12:56] LABS: ALT/SGPT 33 U/L (13-56); AST/SGOT 25 U/L (15-37); Albumin 3.7 g/dL (3.4-5.0); Alkaline Phosphatase 119 U/L (45-117); BUN Blood Urea Nitrogen 18 mg/dL (7-18); Bicarbonate 27 mEq/L (21-32); Bilirubin Total 0.4 mg/dL (0.2-1.0); Glomerular Filtration Rate 89 ml/min (=/>90); Glucose Level 102 mg/dL (74-106); Magnesium 2.2 mg/dL (1.6-2.4); Protein, Total 7.9 g/dL (6.4-8.2); Sodium Level 137 mEq/L (136-145); Troponin High Sensitivity 8.8 pg/mL (<58.9)
[2023-04-28 13:15] LABS: Bilirubin Direct < 0.1 mg/dL (0-0.2); Bilirubin Indirect, Calculated ND mg/dL (0.2-0.8)
--- NOTE | 2023-04-28 13:49 | EDPHYS ---
Physician Documentation [facility] Name: Yane Sharpe Age: 63 yrs Sex: Female : 1960 Arrival Date: 04/28/2023 Time: 12:14 Bed 2 Private MD: ED Physician Florencia Luciano HPI: 04/28 12:55 This 63 yrs old Female presents to ER via Ambulatory with complaints of S/S of Possible sp3 Stroke. 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 She denies any speech abnormalities, motor weakness, memory loss, gait abnormality or any other neurological symptoms whatsoever. Stroke alert was called from triage prior to my evaluation of patient. Patient denies any other symptoms including fever, headache, head injury, neck pain, chest pain, shortness of breath, palpitations, abdominal pain, nausea, vomiting, diarrhea, syncope, near syncope, motor weakness, or any other signs or symptoms on ROS at this time. Patient is on aspirin daily.. Historical: - Allergies: 12:21 Codeine; ld1 12:21 Demerol; ld1 - PMHx: 12:21 High Cholesterol; Hypertension; Right Carotid blockage (Hypertension); ld1 - Immunization history:: Adult Immunizations up to date. - Social history:: Smoking status: Patient denies any tobacco usage or history of. Patient/guardian denies using alcohol. ROS: 12:56 Constitutional: Negative for fever, chills, and weight loss, Eyes: Negative for injury, sp3 pain, redness, and discharge, ENT: Negative for injury, pain, and discharge, Neck: Negative for injury, pain, and swelling, Cardiovascular: Negative for chest pain, palpitations, and edema, Respiratory: Negative for shortness of breath, cough, wheezing, and pleuritic chest pain, Abdomen/GI: Negative for abdominal pain, nausea, vomiting, diarrhea, and constipation, Back: Negative for injury and pain, MS/Extremity: Negative for injury and deformity, Skin: Negative for injury, rash, and discoloration, Psych: Negative for depression, anxiety, suicide ideation, homicidal ideation, and hallucinations, Allergy/Immunology: Negative for hives, rash, and allergies, Endocrine: Negative for neck swelling, polydipsia, polyuria, polyphagia, and marked weight changes, Hematologic/Lymphatic: Negative for swollen nodes, abnormal bleeding, and unusual bruising, Exam: 12:57 Radiologist reports: Negative head CT noncontrast sp3 12:57 Constitutional: This is a well developed, well nourished patient who is awake, alert, and in no acute distress. Head/Face: Normocephalic, atraumatic. Eyes: Pupils equal round and reactive to light, extra-ocular motions intact. Lids and lashes normal. Conjunctiva and sclera are non-icteric and not injected. Cornea within normal limits. Periorbital areas with no swelling, redness, or edema. ENT: Nares patent. No nasal discharge, no septal abnormalities noted. External auditory canals are clear. Oropharynx with no redness, swelling, or masses, exudates, or evidence of obstruction, uvula midline. Mucous membranes moist. Neck: Trachea midline, no thyromegaly or masses palpated, and no cervical lymphadenopathy. Supple, full range of motion without nuchal rigidity, or vertebral point tenderness. No Meningismus. Chest/axilla: Normal chest wall appearance and motion. Nontender with no deformity. No lesions are appreciated. Cardiovascular: Regular rate and rhythm with a normal S1 and S2. No gallops, murmurs, or rubs. Normal PMI, no JVD. No pulse deficits. Respiratory: Lungs have equal breath sounds bilaterally, clear to auscultation and percussion. No rales, rhonchi or wheezes noted. No increased work of breathing, no retractions or nasal flaring. Abdomen/GI: Soft, non-tender, with normal bowel sounds. No distension or tympany. No guarding or rebound. No evidence of tenderness throughout. Back: No spinal tenderness. No costovertebral tenderness. Full range of motion. Skin: Warm, dry with normal turgor. Normal color with no rashes, no lesions, and no evidence of cellulitis. MS/ Extremity: Pulses equal, no cyanosis. Neurovascular intact. Full, normal range of motion. Neuro: Awake and alert, GCS 15, oriented to person, place, time, and situation. Cranial nerves II-XII grossly intact. Motor strength 5/5 in all extremities. Sensory grossly intact. Cerebellar exam normal. Normal gait. Psych: Awake, alert, with orientation to person, place and time. Behavior, mood, and affect are within normal limits. 12:57 ECG was reviewed by the Attending Physician. EKG demonstrates normal sinus rhythm at 86 bpm with normal intervals, normal axis, normal QRS with occasional PVC nonspecific diffuse ST/T changes without evidence of acute ischemia. Vital Signs: 12:19 BP 196 / 115; Pulse 99; Resp 18; Temp 98.9(TE); Pulse Ox 99% on R/A; Pain 0/10; ld1 12:43 BP 150 / 81; Pulse 86; Resp 16 S; Pulse Ox 98% on R/A; aa5 13:37 BP 136 / 78; Pulse 74; Resp 16 S; Pulse Ox 99% on R/A; rs5 12:19 Pain Scale: Adult ld1 NIH Stroke Scale Scores: 12:20 NIHSS Score: 0 rs5 MDM: 12:23 Patient medically screened. sp3 12:58 Data reviewed: vital signs, nurses notes, lab test result(s), EKG, radiologic studies. sp3 ED course: 63-year-old female who initially presented for perioral numbness and "tingling" of bilateral hands which now all symptoms are fully resolved has a normal neurological exam. CT scan of the head is negative and angiograms are still pending. Lab work is also still pending. Blood pressure has come down. Patient is at her baseline with no acute symptoms currently. I am not highly suspicious of CVA/TIA spectrum, acute coronary syndrome, sepsis, shock or any other critical pathway at this time. Consider electrolyte abnormality, possible anxiety, among others. If exam stays where it is remains at normal baseline, we will safely discharge patient home to urology follow-up as an outpatient. Will observe while in ED with continuous neurological examinations while we are awaiting the remainder of her work-up. Patient is unable to perform MRI due to dental work.. 13:47 ED course: Patient with baseline neurological exam and no deficits. We will safely sp3 discharge her home at this time.. 04/28 12:23 Order name: Basic Metabolic Panel; Complete Time: 13:19 sp3 11/07 12:23 Order name: CBC with Diff; Complete Time: 13:19 sp3 04/28 12:23 Order name: Hepatic Function; Complete Time: 13:19 sp3 04/28 12:23 Order name: High Sensitivity Troponin; Complete Time: 13:19 sp3 04/28 12:23 Order name: Magnesium; Complete Time: 13:19 sp3 04/28 12:23 Order name: Protime (+inr); Complete Time: 13:19 sp3 04/28 12:23 Order name: Ptt, Activated; Complete Time: 13:19 sp3 04/28 12:35 Order name: Glucose, Ancillary Testing; Complete Time: 13:19 EDMS 04/28 12:23 Order name: CT Head Angio; Complete Time: 13:19 sp3 04/28 12:23 Order name: CT Neck Angio; Complete Time: 13:19 sp3 04/28 12:23 Order name: CT Stroke Brain w/o Contrast; Complete Time: 13:19 sp3 04/28 12:23 Order name: Stroke CXR 1 View; Complete Time: 14:17 sp3 04/28 12:23 Order name: EKG; Complete Time: 12:24 sp3 04/28 12:23 Order name: Accucheck; Complete Time: 12:24 sp3 04/28 12:23 Order name: Cardiac monitoring; Complete Time: 12:24 sp3 04/28 12:23 Order name: EKG - Nurse/Tech; Complete Time: 12:51 sp3 04/28 12:23 Order name: IV Saline Lock; Complete Time: 12:25 sp3 04/28 12:23 Order name: Labs collected and sent; Complete Time: 12:25 sp3 04/28 12:23 Order name: NPO; Complete Time: 12:24 sp3 04/28 12:23 Order name: O2 Per Protocol; Complete Time: 12:25 sp3 04/28 12:23 Order name: O2 Sat Monitoring; Complete Time: 12:25 sp3 04/28 12:23 Order name: Stroke Swallow Screen; Complete Time: 12:51 sp3 04/28 13:20 Order name: Recheck VS; Complete Time: 13:37 sp3 Administered Medications: No medications were administered Point of Care Testing: Blood Glucose: 12:22 Blood Glucose: 96 mg/dL; rs5 Ranges: Critical Glucose Levels:Adult <50 mg/dl or >400 mg/dl <40 mg/dl or >180 mg/dl Disposition Summary: 04/28/23 13:48 Discharge Ordered Notes: Location: Home sp3 Condition: Stable sp3 Diagnosis - Paresthesia, resolved sp3 Followup: sp3 - With: Private Physician - When: Upon discharge from the Emergency Department - Reason: Recheck today's complaints Followup: sp3 - With: Benjamin Devlin MD - When: Upon discharge from the Emergency Department - Reason: Recheck today's complaints Discharge Instructions: - Discharge Summary Sheet sp3 - Paresthesia sp3 Forms: - Medication Reconciliation Form sp3 - Thank You Letter sp3 - Antibiotic Education sp3 - Prescription Opioid Use sp3 - Patient Portal Instructions sp3 - Leadership Thank You Letter sp3 NIH Stroke Scale - NIH Stroke Score Date: 04/28/2023 Time: 12:20 Total Score = 0 10. Dysarthria (speech clarity - read or repeat words) - 0(Normal) 11. Extinction and Inattention (visual/tactile/auditory/spatial/personal) - 0(No abnormality) 1a. Level of Consciousness (LOC) - 0(Alert) 1b. Level of Consciousness (LOC) (Month \\T\\ Age) 1c. LOC Commands (Open \\T\\ Closes Eyes/Cash Applications Clerk) - 0(Both) 2. Best Gaze (Lateral Gaze Paresis) - 0(Normal) 3. Visual Field Loss - 0(No visual loss) 4. Facial Palsy - 0(Normal) 5a. Left Arm: Motor (10-second hold) - 0(No drift) 5b. Right Arm: Motor (10-second hold) - 0(No drift) 6a. Left Leg: Motor (5-second hold - always test supine) - 0(No drift) 6b. Right Leg: Motor (5-second hold - always test supine) - 0(No drift) 7. Limb Ataxia (finger/nose \\T\\ heel/marquez - test with eyes open) - 0(Absent) 8. Sensory Loss (pinprick arms/legs/face) - 0(Normal) 9. Best Language: Aphasia (description/naming/reading) - 0(No aphasia) Initials: rs5 Signatures: Dispatcher [employer] EDMS Yadi Burns RN RN ld1 Florencia Luciano MD MD sp3 Corrections: (The following items were deleted from the chart) 12:21 PMHx: Right carotid Blockage (Hypertension); ld1 ld1
--- NOTE | 2023-04-28 13:49 | ER ---
Nurse's Notes [facility] Name: Yane Sharpe Age: 63 yrs Sex: Female : 1960 Arrival Date: 04/28/2023 Time: 12:14 Bed 2 Private MD: Diagnosis: Paresthesia, resolved Presentation: 04/28 12:19 Chief complaint: Patient states: Right arm/hand sensory loss/tingling since yesterday. ld1 Right hand, face, tongue and mouth numbness since 1140 today. Denies pain, takes 81mg ASA daily. Coronavirus screen: At this time, the client does not indicate any symptoms associated with coronavirus-19. Ebola Screen: No symptoms or risks identified at this time. Initial Sepsis Screen: Does the patient meet any 2 criteria? No. Patient's initial sepsis screen is negative. Does the patient have a suspected source of infection? No. Patient's initial sepsis screen is negative. Risk Assessment: Do you want to hurt yourself or someone else? Patient reports no desire to harm self or others. Onset of symptoms was April 28, 2023. 12:19 Method Of Arrival: Ambulatory ld1 12:19 Acuity: DENIZ 2 ld1 12:20 No acute neurological deficit is noted. rs5 Triage Assessment: 12:21 The onset of the patients symptoms was April 28, 2023 at 11:40. General: Appears in ld1 no apparent distress. comfortable, Behavior is cooperative, appropriate for age, anxious. Pain: Denies pain. EENT: No signs and/or symptoms were reported regarding the EENT system. Neuro: Level of Consciousness is awake, alert, obeys commands, Oriented to person, place, time, situation, Director Institution are equal bilaterally Moves all extremities. Gait is steady, Speech is normal, Facial symmetry appears normal, Pupils are PERRLA, Reports numbness in right cheek, mouth, right jaw, right hand, dorsal aspect of right forearm and right wrist. Cardiovascular: Capillary refill < 3 seconds Patient's skin is warm and dry. Respiratory: Airway is patent Respiratory effort is even, unlabored. GI: Abdomen is flat, non-distended. : No signs and/or symptoms were reported regarding the genitourinary system. Derm: No signs and/or symptoms reported regarding the dermatologic system. Musculoskeletal: No signs and/or symptoms reported regarding the musculoskeletal system. Stroke Activation: Symptom onset < 3 hours Physician: Stroke Attending; Name: Dr. Liang; Notified At: 12:21; Arrived At: Physician: Chief Stroke Resident; Name: ; Notified At: 12:21; Arrived At: Physician: Stroke Resident; Name: ; Notified At: 12:21; Arrived At: Physician: ED Attending; Name: ; Notified At: 12:21; Arrived At: Physician: ED Resident; Name: ; Notified At: 12:21; Arrived At: Historical: - Allergies: 12:21 Codeine; ld1 12:21 Demerol; ld1 - PMHx: 12:21 High Cholesterol; Hypertension; Right Carotid blockage (Hypertension); ld1 - Immunization history:: Adult Immunizations up to date. - Social history:: Smoking status: Patient denies any tobacco usage or history of. Patient/guardian denies using alcohol. Screenin:19 [facility] ED Fall Risk Assessment (Adult) History of falling in the last 3 months, rs5 including since admission No falls in past 3 months (0 pts) Confusion or Disorientation No (0 pts) Intoxicated or Sedated No (0 pts) Impaired Gait No (0 pts) Mobility Assist Device Used No (0 pt) Altered Elimination No (0 pt) Score/Fall Risk Level 0 - 2 = Low Risk Oriented to surroundings, Maintained a safe environment. Abuse screen: Denies threats or abuse. Nutritional screening: No deficits noted. Tuberculosis screening: No symptoms or risk factors identified. Assessment: 12:20 VAN Scoring: Arm Drift: Patients demonstrates NO arm weakness. Patient is VAN Negative. rs5 Visual Disturbance: No visual disturbance noted. Aphasia: No aphasia noted. Neglect: No neglect noted. TNKase (Tenecteplase) Screening: Indications: Definite evidence of stroke, ischemic, embolic, or hypertensive: No. Treatment will start within 4.5 hours onset of symptoms: Yes. 12:20 General: Appears in no apparent distress. comfortable, Behavior is calm, cooperative. rs5 Pain: Denies pain. Neuro: Level of Consciousness is awake, alert, obeys commands, Oriented to person, place, time, situation, Director Institution are equal bilaterally Moves all extremities. Gait is steady, Speech is normal, Facial symmetry appears normal, Pupils are PERRLA, Pupil Size: 3 mm Intact Babinski is negative. 12:20 Cardiovascular: Heart tones S1 S2 present Rhythm is regular. Respiratory: Airway is rs5 patent Respiratory effort is even, unlabored, Respiratory pattern is regular, symmetrical, Breath sounds are clear bilaterally. GI: Abdomen is round non-distended, Bowel sounds present X 4 quads. Abd is soft and non tender X 4 quads. : No signs and/or symptoms were reported regarding the genitourinary system. EENT: No signs and/or symptoms were reported regarding the EENT system. Derm: Skin is intact, Skin is pink, warm \T\ dry. Musculoskeletal: Range of motion: intact in all extremities. 12:56 Merle Swallow Protocol 3 oz Water Swallow Challenge: Pt able to drink all water without rs5 stopping, coughing, choking or throat clearing: Yes. 13:10 Neuro: Level of Consciousness is awake, alert, obeys commands, Oriented to person, rs5 place, time, situation, Director Institution are equal bilaterally Moves all extremities. Gait is steady, Speech is normal, Facial symmetry appears normal, Pupils are PERRLA, Pupil Size: 3 mm Intact Babinski is negative. 13:45 Reassessment: Patient is alert, oriented x 3, equal unlabored respirations, skin rs5 warm/dry/pink. Vital Signs: 12:19 BP 196 / 115; Pulse 99; Resp 18; Temp 98.9(TE); Pulse Ox 99% on R/A; Pain 0/10; ld1 12:43 BP 150 / 81; Pulse 86; Resp 16 S; Pulse Ox 98% on R/A; aa5 13:37 BP 136 / 78; Pulse 74; Resp 16 S; Pulse Ox 99% on R/A; rs5 12:19 Pain Scale: Adult ld1 NIH Stroke Scale Scores: 12:20 NIHSS Score: 0 rs5 ED Course: 12:18 Patient arrived in ED. ld1 12:19 Patient has correct armband on for positive identification. Placed in gown. Bed in low rs5 position. Call light in reach. Side rails up X2. 12:20 Florencia Luciano MD is Attending Physician. sp3 12:20 Inserted saline lock: 20 gauge in right antecubital area, using aseptic technique. rs5 Blood collected. 12:21 Triage completed. ld1 12:21 Arm band placed on right wrist. ld1 12:22 Tamir Stockton, RN is Primary Nurse. rs5 12:31 CT Stroke Brain w/o Contrast In Process Unspecified. EDMS 12:36 CT Head Angio In Process Unspecified. EDMS 12:36 CT Neck Angio In Process Unspecified. EDMS 13:48 Benjamin Devlin MD is Referral Physician. sp3 14:10 Stroke CXR 1 View In Process Unspecified. EDMS 14:10 No provider procedures requiring assistance completed. IV discontinued, intact, aa5 bleeding controlled, No redness/swelling at site. Pressure dressing applied. Administered Medications: No medications were administered Medication: 14:10 VIS not applicable for this client. aa5 Point of Care Testing: Blood Glucose: 12:22 Blood Glucose: 96 mg/dL; rs5 Ranges: Outcome: 13:48 Discharge ordered by MD. sp3 14:14 Discharged to home ambulatory, with family, aa5 14:14 Condition: stable 14:14 Discharge instructions given to patient, significant other, Instructed on discharge instructions, follow up and referral plans. Demonstrated understanding of instructions, follow-up care, 14:17 Patient left the ED. aa5 NIH Stroke Scale - NIH Stroke Score Date: 04/28/2023 Time: 12:20 Total Score = 0 10. Dysarthria (speech clarity - read or repeat words) - 0(Normal) 11. Extinction and Inattention (visual/tactile/auditory/spatial/personal) - 0(No abnormality) 1a. Level of Consciousness (LOC) - 0(Alert) 1b. Level of Consciousness (LOC) (Month \T\ Age) 1c. LOC Commands (Open \T\ Closes Eyes/Brass Buffer) - 0(Both) 2. Best Gaze (Lateral Gaze Paresis) - 0(Normal) 3. Visual Field Loss - 0(No visual loss) 4. Facial Palsy - 0(Normal) 5a. Left Arm: Motor (10-second hold) - 0(No drift) 5b. Right Arm: Motor (10-second hold) - 0(No drift) 6a. Left Leg: Motor (5-second hold - always test supine) - 0(No drift) 6b. Right Leg: Motor (5-second hold - always test supine) - 0(No drift) 7. Limb Ataxia (finger/nose \T\ heel/marquez - test with eyes open) - 0(Absent) 8. Sensory Loss (pinprick arms/legs/face) - 0(Normal) 9. Best Language: Aphasia (description/naming/reading) - 0(No aphasia) Initials: rs5 Signatures: Dispatcher [employer] Saima Brown RN RN aa5 Yadi Burns RN RN ld1 Florencia Luciano MD MD sp3 Tamir Stockton RN RN rs5 Corrections: (The following items were deleted from the chart) 12:22 12:21 PMHx: Right carotid Blockage (Hypertension); ld1 ld1 19:41 14:14 Reassessment: Patient is alert, oriented x 3, equal unlabored rs5 respirations, skin warm/dry/pink. aa5
--- NOTE | 2023-04-28 14:15 | RAD REPORT ---
EXAM DESCRIPTION: RAD - Chest Single View - 04/28/2023 2:09 pm CLINICAL HISTORY: code stroke Chest pain. COMPARISON: No comparisons FINDINGS: Portable technique limits examination quality. The lungs are grossly clear. The heart is normal in size. No displaced fractures. IMPRESSION: No acute intrathoracic process suspected.
[2023-04-28 14:22] VITALS: TEMP 98.9
[2023-04-28 14:26] VITALS: BP 136/78; O2SAT 99
--- NOTE | 2023-05-02 14:26 | EKG ---
Test Date: 2023-04-28 Test Time: 12:45:42 Operational Communication Chief: AYDEN MEASUREMENT RESULTS: Intervals: Rate: 86 SD: 124 QRSD: 82 QT: 388 QTc: 464 [place]: P: 57 SD: 124 QRS: 2 T: 32 INTERPRETIVE STATEMENTS: Sinus rhythm with occasional premature ventricular complexes Otherwise normal ECG No previous ECG available for comparison Electronically Signed On 05-02-23 14:14:50 JUDICIAL CLERK by Tejinder Barnett
== END 2023-04-28 14:17 | disposition home or self-care (01) ==
LOC: ER 12:14
DX: R20.2 Paresthesia of skin (principal); I10 Essential (primary) hypertension; E78.00 Pure hypercholesterolemia, unspecified; Z88.5 Allergy status to narcotic agent
CPT/HCPCS: 36415; 70450; 70496; 70498; 71045; 80048; 80076; 82565; 82947; 83735; 84484; 85025; 85610; 85730; 93005; 99284; Q9967